=== PATIENT | female | born 1955 | race Caucasian/White ===

== ENCOUNTER 2017-11-14 17:18 | Inpatient (IN) | payer MEDICAID, MEDICARE, OTHER ==
[~2017-11-14] VITALS: Ht 157.5 cm; Wt 47.6 kg
[~2017-11-14 17:18] MED LIST: FERR325T27
[2017-11-14 17:52] LABS: BASOPHILS # (AUTO) 0.2 /CMM (0.0-0.2); BASOPHILS % (AUTO) 2.7 % (0.0-2.0); EOSINOPHILS % (AUTO) 1.9 % (0.0-6.0); HEMATOCRIT 36 % (33-45); HEMOGLOBIN 13.1 g/dL (11.5-14.8); LYMPHOCYTES # (AUTO) 3.6 /CMM (0.8-4.8); MEAN CORPUSCULAR HGB CONC 36 g/dl (31.0-36.0); MEAN CORPUSCULAR VOLUME 89 fL (82-100); MONOCYTES # (AUTO) 0.5 /CMM (0.1-1.30); MONOCYTES % (AUTO) 5.3 % (2.0-12.0); NEUTROPHILS # (AUTO) 4.2 /CMM (1.8-8.9); NEUTROPHILS % (AUTO) 48.1 % (43.0-81.0); PLATELET COUNT (AUTO) 258 /CMM (150-450); RDW COEFFICIENT OF VARIATION 13.9 (11.5-15.0); RED BLOOD CELL COUNT(AUTO) 4.08 MIL/uL (4.0-5.2); WHITE BLOOD COUNT (AUTO) 8.7 K/uL (4.3-11.0)
[2017-11-14 17:56] LABS: CALCIUM, SERUM 8.8 mg/dL (8.5-10.1); CARBON DIOXIDE 27 mmol/L (21-32); CHLORIDE 106 mmol/L (98-107); CREATININE 0.6 mg/dL (0.6-1.3); GLUCOSE 114 mg/dL (74-106); SODIUM SERUM 140 mmol/L (136-145); UREA NITROGEN, BLOOD 16 mg/dL (7-18)
--- NOTE | 2017-11-14 17:58 | NUR ---
FOR DEHYDRATION AND "I THINK I HAVE ANEMIA". NAD NOTED. PT AAO X4, AMB WITH STEADY GAIT. RR EVEN AND UNLABORED. MD AT BEDSIDE FOR EVAL.
[2017-11-14 18:06] LABS: APPEARANCE,URINE Clear (CLEAR); BILIRUBIN,URINE Negative (NEGATIVE); BLOOD, URINE Negative Ery/uL (NEGATIVE); COLOR,URINE Yellow (YELLOW); KETONES,URINE Negative (NEGATIVE); LEUKOCYTE ESTERASE ,URINE Small (NEGATIVE); NITRITE, URINE Negative (NEGATIVE); PROTEIN,URINE Negative (NEGATIVE); UGLUCOSE Negative (NEGATIVE); UROBILINOGEN,URINE 0.2 EU/dL (0.2)
[2017-11-14 18:08] LABS: ALANINE AMINOTRANSFERASE 27 U/L (12-78); ALBUMIN 3.6 g/dL (3.4-5.0); ALKALINE PHOSPHATASE 107 U/L (46-116); ASPARTATE AMINOTRANSFERASE 23 U/L (15-37); BILIRUBIN,DIRECT 0.1 mg/dL (0.0-0.2); BILIRUBIN,TOTAL 0.2 mg/dL (0.2-1.0); SALICYLATE 4.6 mg/dL (2.8-20.0); TOTAL PROTEIN, SERUM 6.8 g/dL (6.4-8.2)
[2017-11-14 18:09] LABS: ACETAMINOPHEN < 10 ug/ml (10-30); ALCOHOL, BLOOD < 3 mg/dL (0-0)
--- NOTE | 2017-11-14 18:09 | NUR ---
CALLED [facility] FOR PSYCH EVAL, ETA 1 HOUR
[2017-11-14] MEDS ORDERED: OLANZAPINE 5 MG TABLET ONE (18:20)
[2017-11-14 18:25] LABS: BACTERIA,URINE Few /HPF (None Seen); MUCUS,URINE Few /LPF (None Seen); RBC,URINE NONE SEEN /HPF (0-2); SQUAMOUS EPITHELIAL CELL,UR Few /HPF (None Seen)
[2017-11-14] MEDS ORDERED: OLANZAPINE 5 MG TABLET PO ONE (18:30)
--- NOTE | 2017-11-14 19:33 | NUR ---
CALLED NURSING SUP. FOR GPS BED
--- NOTE | 2017-11-14 19:55 | NUR ---
REPORT GIVEN TO [facility] FOR [facility].
--- NOTE | 2017-11-14 19:58 | NUR ---
PATIENT TRANSPORTED TO GPS, PATIENT IS AWAKE ALERT AND RESPONSIVE. VSS. NAD NOTED.
[2017-11-14] MEDS ORDERED: ACETAMINOPHEN 325 MG TABLET PO PRN (20:30)
[2017-11-14] MEDS ORDERED: MAGNESIUM HYDROXIDE 30 ML UDC PO PRN (20:30)
[2017-11-14] MEDS ORDERED: clonazePAM 0.5 MG TABLET PO PRN (20:30)
[2017-11-14] MEDS ORDERED: MAG HYDROX/AL HYDROX/SIMETH 30 ML UDC PO PRN (20:30)
[2017-11-14 21:15] VITALS: BP 115/66
--- NOTE | 2017-11-14 21:55 | NUR ---
ADMISSION NOTES ADMITTED THIS 62 Y/O FEMALE PATIENT ADMIT FROM [facility] ER/ , . PT IS ON 5150 HOLD FOR GD , PER HOLD PT. STATED I AM ANEMIC, DISORGNIZE ,RAMBLING, TANGENTIAL , POOR INSIGHT ,IMPARIED JUDGEMENT , MANIC , FLIGHT OF IDEAS , DISHELVED ,BIZARRE BEHAVIOR , HYPERVERBAL, UPON FACE TO FACE ASSESSMENT PATIENT IS A&O X2,3 DISHELVED, DISORGINZE, PT. IS POOR HISTORIAN, POOR INSIGHT ,POOR JUDGEMENT , POOR HYGINE , PT. REFUSED TO TAKE SHOWER AT THIS TIME , AND PT. REFUSED TO SIGN ADMISSION PAPERS ,V/S WNL ,PER ER REPORT PT. DENIES ANY HISTORY OF PSYCHIATRIC ILLNESS OR MEDICAL CONDITION MD AWARE AND NOTIFIED OF THE ADMISSION, SKIN ASSESSMENT DONE . PICTURE TAKEN AND PLACED IN THE CHART, ENCOURAGED PT. VERBALIZED ANY FEELING CONCERN TO STAFF, ORIENT TO UNIT POLICY, WILL CONTINUE TO MONITOR FOR Q15 SAFETY AND BEHAVIOR.
[2017-11-15 08:06] VITALS: BP 111/83
[2017-11-15] MEDS: CEPHALEXIN MONOHYDRATE 250 MG CAPSULE PO SCH ×2 (16:03→21:06)
[2017-11-15 16:21] VITALS: BP 100/68
[2017-11-15 20:21] VITALS: BP 105/56
[2017-11-15] MEDS ORDERED: OLANZAPINE 5 MG/TAB.RAPDIS PO SCH (22:00)
[2017-11-16] MEDS: CEPHALEXIN MONOHYDRATE 250 MG CAPSULE PO SCH ×3 (05:15→20:23)
[2017-11-16 06:56] LABS: BASOPHILS % (AUTO) 0.5 % (0.0-2.0); EOSINOPHILS % (AUTO) 1.9 % (0.0-6.0); HEMATOCRIT 42 % (33-45); HEMOGLOBIN 13.9 g/dL (11.5-14.8); LYMPHOCYTES # (AUTO) 3.8 /CMM (0.8-4.8); LYMPHOCYTES % (AUTO) 41.2 % (20.0-44.0); MEAN CORPUSCULAR HGB CONC 33 g/dl (31.0-36.0); MEAN CORPUSCULAR VOLUME 91 fL (82-100); MONOCYTES # (AUTO) 0.6 /CMM (0.1-1.30); MONOCYTES % (AUTO) 6.6 % (2.0-12.0); NEUTROPHILS # (AUTO) 4.6 /CMM (1.8-8.9); NEUTROPHILS % (AUTO) 49.8 % (43.0-81.0); PLATELET COUNT (AUTO) 259 /CMM (150-450); RDW COEFFICIENT OF VARIATION 14.6 (11.5-15.0); RED BLOOD CELL COUNT(AUTO) 4.59 MIL/uL (4.0-5.2); WHITE BLOOD COUNT (AUTO) 9.2 K/uL (4.3-11.0)
[2017-11-16 07:31] LABS: ALBUMIN 3.2 g/dL (3.4-5.0); BILIRUBIN,TOTAL 0.3 mg/dL (0.2-1.0); CALCIUM, SERUM 8.9 mg/dL (8.5-10.1); CREATININE 0.6 mg/dL (0.6-1.3); POTASSIUM 4.5 mmol/L (3.5-5.1); TOTAL PROTEIN, SERUM 6.4 g/dL (6.4-8.2)
[2017-11-16 08:00] VITALS: BP 96/72
--- NOTE | 2017-11-16 13:40 | NUR ---
UR Review: SW left GILMA MENDEZ WITH [facility] AT [phone] a voicemail message to provide a clinical update (re: medication dosage per psychiatrist Dr. Lacey). KEENAN asked for a callback on this date. KEENAN will follow up.
--- NOTE | 2017-11-16 13:43 | NUR ---
KEENAN received a message from GILMA MENDEZ WITH N AT [phone] requesting additional information (i.e. weight/height). Per Ms. Mendez pt was covered for this day, 11/16/2017. KEENAN will follow up tomorrow.
--- NOTE | 2017-11-16 14:01 | NUR ---
KEENAN spoke to GILMA MENDEZ WITH [facility] AT [phone] to provide a clinical update. Ms. Mendez raised concerns about medication dosage and discussed the possibility of peer to peer review. KEENAN will follow up with Dr. Lacey for treatment planning purposes. KEENAN will follow up with Ms. Mendez.
--- NOTE | 2017-11-16 15:31 | NUR ---
[id number]: CALLED WOUND NURSE FOR FOLLOW UP ASSESSMENT
--- NOTE | 2017-11-16 15:56 | NUR ---
Initial Discharge Plan: Pts address on the face sheet is [facility] . Pt reports being homeless. SW will follow up to ensure pt is safely and adequately discharged.
[2017-11-16 16:00] VITALS: BP 95/63
[2017-11-16 20:12] VITALS: BP 109/49
[2017-11-16] MEDS: OLANZAPINE 5 MG/TAB.RAPDIS PO SCH (21:36)
--- NOTE | 2017-11-16 21:36 | NUR ---
GPS RN NOTES: PATIENT REFUSED ZYPREXA SCHEDULED TIME. DESPITE OF EXPLANATION THE RISKS AND BENEFITS. PT. STATED " I DON'T TAKE ANY NIGHT MEDS".
[2017-11-17] MEDS: CEPHALEXIN MONOHYDRATE 250 MG CAPSULE PO SCH ×2 (05:22→13:00)
[2017-11-17 08:00] VITALS: BP 118/72
[2017-11-17] MEDS: OLANZAPINE 5 MG/TAB.RAPDIS PO SCH ×2 (10:00→21:21)
[2017-11-17] MEDS: DIVALPROEX SODIUM 125 MG CAP.SPRINK PO SCH ×2 (10:30→21:16)
--- NOTE | 2017-11-17 10:52 | NUR ---
WOUND CARE CONSULT WOUND CARE RECEIVED CONSULT FOR PLANTAR AREA REDNESS, BILATERAL FOOT DRYNESS. WOUND CARE DEFERRED CONSULT AND TREATMENT PLAN TO PODIATRY AND PATIENT REFUSED PODIATRY EXAM AND EVALUATION. WOUND RN SPOKE TO MEDICAL AUTHORIZATION SPECIALIST AND LET HER KNOW IF PATIENT CHANGES HER MIND TO LET WOUND CARE KNOW.
--- NOTE | 2017-11-17 13:49 | NUR ---
UR Review: KEENAN left a voicemail message for GILMA MENDEZ WITH [facility] AT [phone] to provide her with the information she requested the previous day (i.e. height/weight). KEENAN will follow up.
--- NOTE | 2017-11-17 13:51 | NUR ---
UR Review: SW received a message from GILMA MENDEZ WITH [facility] AT [phone] approving care for this day, 11/17/17. F/U required tomorrow.
[2017-11-17 16:00] VITALS: BP 111/73
[2017-11-17 20:32] VITALS: BP 102/59
[2017-11-17] MEDS: METRONIDAZOLE 500 MG TABLET PO SCH (21:16)
[2017-11-18 08:30] VITALS: BP 99/62
[2017-11-18] MEDS ORDERED: VITAMINS A AND D 56.7 GM TUBE TP PRN (08:30)
[2017-11-18] MEDS: METRONIDAZOLE 500 MG TABLET PO SCH ×2 (10:06→20:42)
[2017-11-18] MEDS: DIVALPROEX SODIUM 125 MG CAP.SPRINK PO SCH ×2 (10:06→20:42)
[2017-11-18] MEDS: OLANZAPINE 5 MG/TAB.RAPDIS PO SCH ×2 (10:07→21:49)
--- NOTE | 2017-11-18 15:25 | NUR ---
KEENAN arranged for a peer to peer review through Janeth (ticket scheduler) for Dr. Lacey to be held tomorrow at 11:00am; with Dr. Schwartz. Dr. Lacey was notified on this date. KEENAN also informed GILMA MENDEZ WITH [facility] AT [phone] via voicemail message.
[2017-11-18 16:09] VITALS: BP 94/73
[2017-11-18] MEDS: CLOTRIMAZOLE 1% 15 GM TUBE TP SCH (18:00)
[2017-11-18 20:00] VITALS: BP 103/66
[2017-11-19 08:37] VITALS: BP 101/69
[2017-11-19] MEDS: OLANZAPINE 5 MG/TAB.RAPDIS PO SCH ×2 (10:29→21:44)
[2017-11-19] MEDS: DIVALPROEX SODIUM 125 MG CAP.SPRINK PO SCH ×2 (10:30→21:44)
[2017-11-19] MEDS: METRONIDAZOLE 500 MG TABLET PO SCH ×2 (10:30→21:44)
--- NOTE | 2017-11-19 15:09 | NUR ---
KEENAN received a call from GILMA MENDEZ WITH [facility] AT [phone] approving pts care through the 22 of November. Per Gilma she will be out of the office on Wednesday the . F/U with Jen .
[2017-11-19 16:00] VITALS: BP 104/62
[2017-11-19] MEDS: CLOTRIMAZOLE 1% 15 GM TUBE TP SCH (18:00)
[2017-11-19 20:00] VITALS: BP 114/58
[2017-11-19] MEDS: TEMAZEPAM 7.5 MG CAPSULE PO PRN (21:45)
[2017-11-20 08:52] VITALS: BP 126/71
[2017-11-20] MEDS: METRONIDAZOLE 500 MG TABLET PO SCH ×2 (09:45→21:39)
[2017-11-20] MEDS: OLANZAPINE 5 MG/TAB.RAPDIS PO SCH ×2 (09:45→21:39)
[2017-11-20] MEDS: DIVALPROEX SODIUM 125 MG CAP.SPRINK PO SCH ×2 (09:46→21:39)
--- NOTE | 2017-11-20 10:00 | NUR ---
COOPERATIVE,ISOLATIVE. MED COMPLIANT.
[2017-11-20 16:00] VITALS: BP 104/55
[2017-11-20] MEDS: CLOTRIMAZOLE 1% 15 GM TUBE TP SCH (17:39)
--- NOTE | 2017-11-20 18:00 | NUR ---
NO CHANGE IN STATUS.
[2017-11-20 20:00] VITALS: BP 121/58
[2017-11-20] MEDS: TEMAZEPAM 7.5 MG CAPSULE PO PRN (21:39)
[2017-11-21 08:00] VITALS: BP 90/55
[2017-11-21] MEDS: METRONIDAZOLE 500 MG TABLET PO SCH ×2 (08:12→21:00)
[2017-11-21] MEDS: OLANZAPINE 5 MG/TAB.RAPDIS PO SCH ×2 (08:12→22:00)
[2017-11-21] MEDS: DIVALPROEX SODIUM 125 MG CAP.SPRINK PO SCH ×2 (08:12→21:00)
[2017-11-21 15:54] VITALS: BP 113/58
[2017-11-21] MEDS: CLOTRIMAZOLE 1% 15 GM TUBE TP SCH (17:24)
--- NOTE | 2017-11-21 21:41 | NUR ---
GPS RN NOTES: PATIENT IN BED, THIS TIME SHES REFUSING MEDICATIONS, ACCORDING TO HER, SHE DOESN'T HAVE ANY PSYCHE PROBLEMS. "I AM ONLY HERE FOR A SPLINTER ON MY FOOT" NURSE WANTED TO CHECK THE FOOT, BUTPATIENT REFUSED. SHE WAS YELLING AND SCREAMING AT THE NURSE NURSE WAS TRYING TO EXPLAIN THE NEED FOR THE MEDICATIONS. WILL CONTINUE TO MONITOR PATIENT FOR MOOD, SAFETY AND BEHAVIOR.
[2017-11-22 08:00] VITALS: BP 100/59
[2017-11-22] MEDS: METRONIDAZOLE 500 MG TABLET PO SCH (08:08)
[2017-11-22] MEDS: OLANZAPINE 5 MG/TAB.RAPDIS PO SCH ×2 (08:09→21:32)
[2017-11-22] MEDS: DIVALPROEX SODIUM 125 MG CAP.SPRINK PO SCH ×2 (08:09→21:31)
--- NOTE | 2017-11-22 09:00 | NUR ---
GPS/RN PATIENT REPORTS 8/10 GENERALIZED PAIN,, ADMINISTERED NORCO 5/325 1 TAB, WILL CONTINUE TO MONITOR.
--- NOTE | 2017-11-22 09:46 | NUR ---
UR Review: KEENAN received a call from Jen WITH [facility] AT [phone] for clinical review. KEENAN provided Jen with an update regarding pts progress. KEENAN will follow up with psychiatrist to discuss treatment plan in order to inform HMO. KEENAN will follow up with Jen later on in the day.
--- NOTE | 2017-11-22 11:04 | NUR ---
GPS/RN PATIENT REFUSED A.M. MEDICATIONS X 3, EXPLAINED RISKS AND BENEFITS, WILL CONTINUE TO ENCOURAGE TO COMPLY WITH MD REGIMEN.
[2017-11-22 16:00] VITALS: BP 100/60
[2017-11-22] MEDS: CLOTRIMAZOLE 1% 15 GM TUBE TP SCH (17:50)
[2017-11-22 19:39] VITALS: BP 89/48
[2017-11-22 21:34] VITALS: BP 96/58
[2017-11-23 08:00] VITALS: BP 100/59
[2017-11-23] MEDS: DIVALPROEX SODIUM 125 MG CAP.SPRINK PO SCH (08:32)
[2017-11-23] MEDS: OLANZAPINE 5 MG/TAB.RAPDIS PO SCH (08:32)
--- NOTE | 2017-11-23 13:30 | NUR ---
GPS/RN PATIENT CLEARED FOR DISCHARGE BY DR SPEARS AND DR VARNER. MEDICATIONS RECONCILED BY BOTH DR'S AND PRESCRIPTIONS INCLUDED IN PACKET. EXIT CARE, MEDICATIONS AND AFTER CARE PLAN EXPLAINED TO PATIENT, VERBALIZED UNDERSTANDING. PATIENT STATED SHE HAS NO PREFERRED PHARMACY AND WILL LOCATE ONE WHEN SHE GETS TO HER FRIEND'S HOUSE. BELONGINGS AND VALUABLES (INCLUDING $207.00) RETURNED AND SIGNED FOR BY PATIENT AND COSIGNED BY 2 RN. PATIENT DENIES SI/HI/AH UPON DISCHARGE, PSYCHIATRIC TREATMENT PLANS MET. LEFT UNIT WITH PAINTER HELPER SIGN AT SIDE, LEFT HOSPITAL VIA TAXI.
--- NOTE | 2017-11-23 16:43 | NUR ---
Discharge Plan: Patient will discharge to her friend [facility] home, [address] [place] [address]; via taxi at @ 1:00 pm. Pt has been notified and is in agreement with discharge plan. Pt has no family to notify and asked that no one be contacted. Pt was referred to the following physicians: [facility], Dr. Fermin, [address] [facility]. [facility] [address]; and Psychiatrist, [facility]; [address] [place] [address]; . Pt was also provided with the following referrals to substance abuse interventions: [facility], [address] [place] [address]; , [facility], [address] [facility] [id number] and [facility] [address] [place] [address]; . Pt denied having a problem with substance use however agreed and accepted referrals.
--- NOTE | 2017-11-24 12:05 | NUR ---
KEENAN faxed discharge summary (dated 11/22/17) and med list to GILMA MENDEZ WITH [facility] AT [phone] on this date. KEENAN also sent Dr. Lacey a message requesting him to input the discharge summary. KEENAN will follow up.
== END 2017-11-23 14:30 | disposition home or self-care (01) | DRG 885 ==
LOC: ER 17:34 → GPS 19:39
PROVIDERS: ADMIT Psychiatry & Neurology Psychiatry; ATTEND Internal Medicine
DX: F29 Unspecified psychosis not due to a substance or known physiological condition (principal); E44.1 Mild protein-calorie malnutrition; F22 Delusional disorders; F25.9 Schizoaffective disorder, unspecified; B35.3 Tinea pedis; F17.210 Nicotine dependence, cigarettes, uncomplicated; N39.0 Urinary tract infection, site not specified; M79.671 Pain in right foot; F41.9 Anxiety disorder, unspecified; R21 Rash and other nonspecific skin eruption; E78.5 Hyperlipidemia, unspecified; B96.89 Other specified bacterial agents as the cause of diseases classified elsewhere; L85.3 Xerosis cutis; Z59.0 Homelessness
CPT/HCPCS: 36415; 73630-TC; 80048-TC; 80053-TC; 80061-TC; 80076-TC; 80164-TC; 80305; 81000-TC; 85025-TC; 87081-TC; 87086-TC; A4606; G0480; Z7610